=== PATIENT | male | born 1980 | race Caucasian/White ===

== ENCOUNTER 2021-01-07 10:45 | Outpatient (CLI) | payer OTHER, SELFPAY ==
[2021-01-07 11:58] LABS: Hematocrit 44.5 % (42.0-52.0); Hemoglobin 15.3 g/dL (14.0-18.0); Mean Corpuscular HGB Conc 34.4 g/dl (32-36); Mean Corpuscular Hemoglobin 28.9 pg (26-34); Mean Corpuscular Volume 84.1 fl (80-100); Mean Platelet Volume 11.4 fl (7.4-10.4); Platelet Count Result 195 k/mm3 (150-375); Red Blood Count 5.29 M/mm3 (4.6-6.20); Red Cell Distribution Width 12.4 % (11.5-14.5); White Blood Count 4.9 K/mm3 (4.5-10.0)
[2021-01-07 12:07] LABS: Alanine Aminotransferase 39 U/L (4-50); Albumin Level 4.8 g/dL (3.5-5.1); Alkaline Phosphatase 99 U/L (38-126); Anion Gap 8 mmol/L (8-16); Aspartate Amino Transferase 32 U/L (17-59); Bilirubin,Total 0.5 mg/dL (0.2-1.3); Blood Urea Nitrogen 18 mg/dL (9-20); Calcium 9.5 mg/dL (8.4-10.2); Carbon Dioxide 29 mmol/L (22-30); Chloride 103 mmol/L (98-107); Cholesterol 203 mg/dL (0-200); Estimated Glomerular Filt Rate > 60; Glucose 88 mg/dL (75-110); HDL Direct 32 mg/dL; Potassium 4.2 mmol/L (3.4-5.0); Sodium 140 mmol/L (137-145); Triglycerides 441 mg/dL (<150)
[2021-01-07 12:18] LABS: LDL Cholesterol Direct 84 mg/dL
[2021-01-12 12:09] LABS: Testosterone Free 71.2 pg/mL (35.0-155.0); Testosterone Total 381 ng/dL (250-1100)
== END 2021-01-07 10:46 | disposition home or self-care (01) ==
PROVIDERS: PCP Physician Assistant; Visit Provider Physician Assistant
DX: R53.83 Other fatigue (principal); Z00.00 Encounter for general adult medical examination without abnormal findings
CPT/HCPCS: 36415; 80053; 80061; 84402; 84403; 84443; 85027

== ENCOUNTER 2021-02-28 09:53 | Outpatient (CLI) | payer OTHER, SELFPAY ==
--- NOTE | ~2021-02-28 | CT_ITS ---
EXAMINATION: CT sinus wo con DATE: 02/28/2021 10:15 INDICATION: Deviated nasal septum, difficulty breathing through nose TECHNIQUE: Computed tomography (CT) of the paranasal sinuses was performed without contrast. Iterativ e reconstruction technique was employed. Exam dose: 329.94 mGy-cm total exam DLP. COMPARISON: 04/22/2009 CT sinuses FINDINGS: Leftward deviation of nasal septum. Prominent interlamellar cell of right middle nasal turbinate. Mild or intraluminal cell formation of the bilateral superior nasal turbinates. Relatively symmetric prominent soft tissue thickening of the inferior nasal turbinates. Asymmetric so ft tissue thickening of the right middle nasal turbinate. The ostiomeatal units are patent bilaterally. Small focal area of soft tissue thickening of posterior medial right maxillary sinus and posterolater al left maxillary sinus. The paranasal sinuses and mastoid air cells are otherwise normally developed and aerated. Middle and inner ear apparatus appear normal bilaterally. IMPRESSION: Leftward deviation of nasal septum Soft tissue prominence of right middle and bilateral inferior nasal turbinates Prominent intralamellar cell of right middle nasal turbinate Bilateral superior nasal turbinate intralamellar cell Patent ostiomeatal units Small focal mucoperiosteal thickening of each maxillary sinus Reviewed, dictated and finalized at [facility]. Reviewed, dictated and finalized at [facility].
== END 2021-02-28 09:54 | disposition home or self-care (01) ==
PROVIDERS: PCP Physician Assistant; Visit Provider Otolaryngology
DX: J34.2 Deviated nasal septum (principal); J34.89 Other specified disorders of nose and nasal sinuses; R44.8 Other symptoms and signs involving general sensations and perceptions; R51.9 Headache, unspecified; R09.81 Nasal congestion; J34.3 Hypertrophy of nasal turbinates
CPT/HCPCS: 70486

== ENCOUNTER → 2021-03-21 02:19 | Outpatient (CLI) | payer OTHER, SELFPAY ==
[2021-03-21 23:32] LABS: SARS-CoV-2 RNA PCR Negative
== END ==
PROVIDERS: PCP Physician Assistant; Visit Provider Otolaryngology
DX: Z01.812 Encounter for preprocedural laboratory examination (principal); Z20.822 Contact with and (suspected) exposure to COVID-19
CPT/HCPCS: C9803; U0003; U0005

== ENCOUNTER 2021-03-24 02:25 | Day surgery (SDC) | payer OTHER, SELFPAY ==
[2021-03-14 14:51] VITALS: BMI 34.9
--- NOTE | 2021-03-22 08:30 | PM.IMHP ---
H&P: HPI History of Present Illness Date/Time: 03/22/21 08:30 40-year-old male presents for planned surgical procedures. Reports no new symptoms or changes in medical history. Chief Complaint: nasal obstruction, nasal congestion, inferior turbinate hypertrophy, patricia bullosa right, septal deviation Review of Systems Constitutional: Constitutional: Denies fatigue, Denies fever(s) and Denies lethargy Eyes: Eyes: Denies blurry vision and Denies change in vision ENT: Reports as per HPI Cardiovascular: Cardiovascular: Denies chest pain Respiratory: Respiratory: Denies cough Endocrine: Endocrine: Denies fatigue Hematologic/Lymphatic: Hematologic/Lymphatic: Denies easy bleeding, Denies easy bruising and Denies lymphadenopathy Allergic/Immunologic: Allergic/Immunologic: Denies seasonal rhinorrhea [facility] [place] Past Medical History Medical History (Updated 02/22/21 @ 08:25 by Deshawn Calderon MD) Anxiety and depression Depression Hypertriglyceridemia Hypertrophy of both inferior nasal turbinates Nasal congestion Nasal obstruction Obesity (BMI 30-39.9) Family History Family History Mother Patient's mother is in good health Father Patient's father is in good health Social History Social History (Updated 01/31/21 @ 13:27 by Wanda Briscoe MA) Smoking status: Never smoker Second hand tobacco smoke exposure: No Alcohol intake: current Substance use: never Substance use type: does not use Spiritual care concerns: No Meds Home Medications and Allergies Home Medications Medication Instructions Recorded Confirmed Type omeprazole 20 mg capsule,delayed 20 mg PO DAILY 08/28/19 03/14/21 History release fluoxetine 20 mg capsule 20 mg PO DAILY #90 cap 01/10/21 03/14/21 Rx Allergies Allergy/AdvReac Type Severity Reaction Status Date / Time No Known Allergies Allergy Verified 03/14/21 14:51 Exam Const: General: cooperative, healthy appearing, comfortable, well developed and alert HENMT: Head: normal to inspection, normocephalic and atraumatic Ears: hearing grossly normal bilaterally, external ears normal, TM's normal bilaterally and EAC's normal General nose exam: Normal external nose present, Normal nares present, No nasal polyps present and Other nasal findings present ( Septal deviation inferior turbinate hypertrophy) Face and sinus: normal facial exam Mouth: Yes Normal oral and palatal mucosa present, Yes lip normal, Yes tongue normal, Yes oropharynx normal and Yes moist mucous membranes Teeth and gingiva: dentition normal and gingiva normal Throat: posterior oropharynx normal, tonsils normal and uvula midline Eyes: General: appearance normal, both eyes and all related structures Periorbital: periorbital findings normal Eyelids: eyelids normal Conjunctivae: conjunctivae normal Sclera: sclerae normal Neck: Neck: normal visual inspection, full ROM and no lymphadenopathy Thyroid: thyroid normal Lymphatic: no lymphadenopathy noted Resp: Effort & Inspection: normal respiratory effort and able to speak in complete sentences Cardio: Jugular venous distension: no JVD Neuro: Cranial nerves: Yes CN's II-XII intact bilaterally Assessment and Plan Assessment and plan (1) Patricia bullosa: Code(s): J34.89 - Other specified disorders of nose and nasal sinuses Status: Acute Assessment and Plan: plan is for the operating room for endoscopic assisted resection of right patricia bullosa septoplasty and inferior turbinate reduction without fracture. The risks were discussed including damage to brain blindness damage to vision CSF leak bleeding infection and the need for further procedures. The patient voiced understanding of these risks and agreed. (2) Nasal septal deviation: Code(s): J34.2 - Deviated nasal septum Status: Acute (3) Nasal obstruction: Code(s): J34.89 - Other specified disorders of
[2021-03-24] VITALS (8 sets, daily range): BP systolic 111–129; BP diastolic 70–89; PULSE 55–81; RESP 12–19; TEMP 36–36.6; O2SAT 97–100
--- NOTE | 2021-03-24 07:01 | WPDANESEPPF ---
Anes - Initial Pre Proc Eval Procedure: Operation Date: 03/24/21 08:30 Proposed Procedures p Bilateral Inferior Turbinectomy, Resection of Massiel Bullosa - Deshawn Calderon MD s Endoscopic Septoplasty - Deshawn Calderon MD Date/Time: 03/24/21 07:01 Surgeon: Deshawn Calderon MD Pre Op Diagnosis: chronic sinusitis Patient Data Age: 40 Gender: M Height: 6 ft 1 in Weight: 120.2 kg Allergies Allergy/AdvReac Type Severity Reaction Status Date / Time No Known Allergies Allergy Verified 03/14/21 14:51 Home Medications Medication Instructions Recorded Confirmed Type omeprazole 20 mg capsule,delayed 20 mg PO DAILY 08/28/19 03/14/21 History release fluoxetine 20 mg capsule 20 mg PO DAILY #90 cap 01/10/21 03/14/21 Rx Patient hx anesthesia problems: other (motion sickness) Family hx anesthesia problems: none PMFSH Past Medical History Medical History Anxiety and depression Depression Hypertriglyceridemia Hypertrophy of both inferior nasal turbinates Nasal congestion Nasal obstruction Obesity (BMI 30-39.9) Family History Family History Mother Patient's mother is in good health Father Patient's father is in good health Social History Social History Smoking status: Never smoker Second hand tobacco smoke exposure: No Alcohol intake: current Alcohol use details: RARE - 1/MONTH AT MOST Substance use: never Substance use type: does not use Living arrangements: with family Spiritual care concerns: No Anes - Eval Final PreProcedure Day of Procedure 03/24/21 07:01 Patient weight: obese Heart: regular rate and rhythm Lungs: clear to auscultation Airway: Mallampati scale class II Neurological: alert and oriented Last oral intake: >/= 8 hours ASA classification: II Emergent: no Anesthetic plan: proceed Anesthesia type and monitoring: general ETT and standard monitoring Informed Consent: The patient's anesthetic plan and its attendant risks and benefits were discussed with the patient/family/POA. Questions were solicited and answers provided to the satisfaction of the patient/family/POA.
--- NOTE | 2021-03-24 07:05 | WPDHPUPDATE1 ---
History and Physical Update Update Date/Time: 03/24/21 07:05 History and Physical has been reviewed, including an updated exam of the patient. There are NO changes in the patient's condition. Risks, benefits, and alternatives have been discussed and questions answered. Patient agrees to proceed with procedure.
[2021-03-24] MEDS: SCOPOLAMINE 1.5 MG PATCH TRANSDERM (08:06)
[2021-03-24] MEDS: ACETAMINOPHEN 500 MG TABLET 1000 MG PO (08:06)
[2021-03-24] MEDS: LACTATED RINGERS 1,000 ML 30 ML IV CONT (08:07)
[2021-03-24] MEDS: ceFAZolin 2 GM/D5W 50 ML 2 GM/50 ML BAG IVPB (08:29)
[2021-03-24] MEDS: LIDO 1%/EPINEPHRINE 1:100,000 50 ML VIAL INFILTRATE (08:35)
[2021-03-24] MEDS: OXYMETAZOLINE HCL 0.05% NAS 15 ML BTL (*BKC) 1 SPRAY NASAL (08:35)
--- NOTE | 2021-03-24 10:12 | P.OP_ITS ---
Procedure Note - Detailed Date of Procedure 03/24/21 Pre-op Diagnosis chronic sinusitis Post-op Diagnosis same Procedure Performed 1. Endoscopic assisted septoplasty 2. Inferior turbinate submucosal resection with outfracture 3. Resection of right patricia bullosa Surgeon Deshawn Calderon MD Anesthesia general Indications Right patricia bullosa deviated nasal septum inferior turbinate hypertrophy nasal obstruction and nasal congestion Findings Septal deviation inferior turbinate hypertrophy right patricia bullosa Description of Procedure The patient was correctly identified and consent was verified in the preoperativ e holding area. The patient was then brought to the operating room and a time- out was performed. General anesthesia was induced and endotracheal tube was secured the patient's airway and taped to the left lower lip. Afrin-soaked pledgets were then inserted in the bilateral nasal passages and allowed to sit for 5 minutes. The patient was then prepped and draped for the aforementioned procedure. The Afrin-soaked pledgets were removed. 8 cc of 1% lidocaine with 1 100,000 parts epinephrine was injected in the bilateral nasal septum in the submucoperichondrial plane as well as the bilateral inferior turbinates and the right anterior middle turbinate. Fifteen blade was utilized to make a left- sided [place] incision. A mucoperichondrial flap was elevated. The cartilage was then transected and a right-sided mucoperichondrial flap was elevated. The deviated nasal septum was removed with a combination of Clarence Melara forceps Juan forceps and osteotome. Small perforation on the right side was noted. The right middle turbinate was then entered anteriorly with a sickle blade. Through cuts and microdebrider were utilized to perform the resection of the patricia bullosa with adequate hemostasis noted. The left inferior turbinate was then entered anteriorly using micro debrider with inferior turbinate blade. This was debrided in the submucosal plane. Mcleod tip and edematous mucosa were then debrided and cauterized using Bovie suction electrocautery at a setting of 15. The exact same procedure was performed on the right inferior turbinate as well. Hemostasis was noted to be excellent. The left-sided septal Juan incision was then closed with 3 interrupted 5 0 fast gut sutures. The bilateral nasal passages were them examined and hemostasis was again noted to be excellent. Bilateral Banks splints were placed and sutured anteriorly using a 3 0 nylon suture. Care of the patient was turned over to Anesthesiology. There were no complications. I performed all dictated portions of the procedure. Implants Banks splints Estimated Blood Loss -20.0 Drains No Packing No Pathology none sent Complications No immediate complications Condition stable Disposition PACU
[2021-03-24] MEDS: fentaNYL CITRATE INJ (*CRX) 100 MCG/2 ML VIAL 25 MCG IV PUSH ×6 (10:16→10:40)
[2021-03-24] MEDS: ONDANSETRON INJ 4 MG/2 ML VIAL IV PUSH (10:30)
[2021-03-24] MEDS: diphenhydrAMINE HCl INJ 50 MG/ML VIAL 25 MG IV PUSH (10:59)
== END 2021-03-24 11:32 | disposition home or self-care (01) ==
PROVIDERS: PCP Physician Assistant; Visit Provider Otolaryngology
PROC: (CPT 30520; principal; 2021-03-24 08:30)
PROC: (CPT 30520; 2021-03-24 08:30)
DX: J32.9 Chronic sinusitis, unspecified (principal); J34.2 Deviated nasal septum; J34.3 Hypertrophy of nasal turbinates; J34.89 Other specified disorders of nose and nasal sinuses; F41.8 Other specified anxiety disorders; E78.1 Pure hyperglyceridemia; E66.9 Obesity, unspecified; Z68.34 Body mass index [BMI] 34.0-34.9, adult
CPT/HCPCS: 30520; 30140; 31240; A9270; J0330; J0690; J1100; J1200; J2250; J2405; J2704; J3010; J7120

== ENCOUNTER → 2021-05-19 01:29 | Outpatient (CLI) | payer OTHER, SELFPAY ==
[2021-05-20 02:18] LABS: SARS-CoV-2 RNA PCR Negative
== END ==
PROVIDERS: PCP Physician Assistant; Visit Provider Physician Assistant
DX: Z20.822 Contact with and (suspected) exposure to COVID-19 (principal); R09.89 Other specified symptoms and signs involving the circulatory and respiratory systems
CPT/HCPCS: 36415; 80061; C9803; U0003; U0005

== ENCOUNTER 2021-05-19 08:25 | Outpatient (CLI) | payer OTHER, SELFPAY ==
[2021-05-19 09:09] LABS: Cholesterol 206 mg/dL (0-200); HDL Direct 39 mg/dL; Triglycerides 198 mg/dL (<150)
[2021-05-19 09:20] LABS: LDL Cholesterol Direct 113 mg/dL
== END 2021-05-19 08:26 | disposition home or self-care (01) ==
LOC: ANHLAB 08:29
PROVIDERS: PCP Internal Medicine; Visit Provider Physician Assistant
DX: E78.1 Pure hyperglyceridemia (principal)
CPT/HCPCS: 36415; 80061

== ENCOUNTER 2022-06-04 17:07 | Outpatient (CLI) | payer OTHER, SELFPAY ==
--- NOTE | ~2022-06-04 | XR_ITS ---
EXAM: XR shoulder RT min 2V DATE: 06/04/2022 17:34 HISTORY: ANTERIOR LATERAL RT SHOULDER PAIN X 2 WEEKS NO INJURY . COMPARISON: None available. FINDINGS: Normal mineralization. No fracture or dislocation. No lytic or blastic lesion. Joint space s are maintained. No erosion or periosteal change. Soft tissues within normal limits. IMPRESSION: Normal right shoulder radiograph findings. Reviewed, dictated and finalized at [facility].
--- NOTE | ~2022-06-04 | XR_ITS ---
EXAM: XR foot LT min 3V DATE: 06/04/2022 17:33 HISTORY: PAIN TO ANTERIOR LT FOOT X 2 WEEKS NO INJURY . COMPARISON: None available. FINDINGS: Normal mineralization. No fracture or dislocation. No lytic or blastic lesion. Moderate de generative changes in the midfoot and mild degenerative change in the first MTP. Achilles and plantar enthesopathy. Loss of the longitudinal arch. No erosion or periosteal change. Soft tissues within no rmal limits. IMPRESSION: Pes planus. Degenerative midfoot and first MTP change. Plantar and Achilles enthesopathy. Reviewed, dictated and finalized at [facility].
== END 2022-06-04 17:08 | disposition home or self-care (01) ==
PROVIDERS: PCP Physician Assistant; Visit Provider Physician Assistant
DX: M25.511 Pain in right shoulder (principal); M21.42 Flat foot [pes planus] (acquired), left foot; M19.072 Primary osteoarthritis, left ankle and foot
CPT/HCPCS: 73030; 73630

== ENCOUNTER 2023-12-24 01:07 | Day surgery (SDC) | payer OTHER, SELFPAY ==
[2023-12-13 12:49] VITALS: BMI 37.0
--- NOTE | 2023-12-20 10:49 | SUR.PREOP ---
Patient called regarding upcoming procedure. Reviewed preop instructions, appointment times, and procedure prep.
[2023-12-24 12:48] VITALS: BP 110/83; PULSE 79; RESP 18; TEMP 36.6; O2SAT 99; BMI 37.0
[2023-12-24] MEDS: LACTATED RINGERS 1,000 ML 150 ML IV CONT (13:05)
--- NOTE | 2023-12-24 13:32 | WPDANESEPPF ---
Anes - Initial Pre Proc Eval Procedure: Operation Date: 12/24/23 13:30 Proposed Procedures p Esophagogastroduodenoscopy & Colonoscopy - Sammy Macias MD Date/Time: 12/24/23 13:32 Surgeon: Sammy Macias MD Pre Op Diagnosis: GERD,Anal Fissure,hx colon polyps Patient Data Age: 43 Gender: M Height: 1.85 m Weight: 127.2 kg Last Vital Signs Temp 97.8 F 12/24/23 12:48 Pulse 79 12/24/23 12:48 Resp 18 12/24/23 12:48 BP 110/83 12/24/23 12:48 Pulse Ox 99 12/24/23 12:48 O2 Del Method Room Air 12/24/23 12:48 Allergies Allergy/AdvReac Type Severity Reaction Status Date / Time No Known Allergies Allergy Verified 12/24/23 12:46 Home Medications Medication Instructions Recorded Confirmed Type omeprazole 20 mg capsule,delayed 20 mg PO DAILY 08/28/19 12/13/23 History release rizatriptan 10 mg tablet (Maxalt) See Rx Instructions PO .COMPLEX #9 02/25/23 12/13/23 Rx tabs desvenlafaxine succinate 50 mg 50 mg PO DAILY 12/13/23 12/24/23 History tablet,extended release 24 hr Patient hx anesthesia problems: none Family hx anesthesia problems: none Results Review: All pre-operative results and documents have been reviewed as part of the pre-operative evaluation. [facility] Past Medical History Medical History Anxiety and depression Massiel bullosa Depression Hypertriglyceridemia Hypertrophy of both inferior nasal turbinates Impingement syndrome, shoulder, left Nasal septal deviation Family History Family History Mother Patient's mother is in good health Father Patient's father is in good health Social History Social History Smoking status: Never smoker Second hand tobacco smoke exposure: No Alcohol intake: never Substance use: never Substance use type: does not use Lack of Transportation: No Lack of Food: Never True Current Housing: I Have Housing Concerned About Future Housing: No Difficulty Paying Gas/Electric Bills: No Difficulty Paying for Meds: No Currently Unemployed: No Education: High School Diploma/GED Difficulty w/ Childcare or Family Care: No Living arrangements: with family Spiritual care concerns: No Anes - Eval Final PreProcedure Day of Procedure 12/24/23 13:32 Patient weight: obese Heart: regular rate and rhythm Lungs: clear to auscultation Airway: Mallampati scale class II Neurological: alert and oriented Last oral intake: >/= 8 hours ASA classification: III Emergent: no Anesthetic plan: proceed Anesthesia type and monitoring: general GIVS and standard monitoring Results Review: All pre-operative results and documents have been reviewed as part of the pre-operative evaluation. Informed Consent: The patient's anesthetic plan and its attendant risks and benefits were discussed with the patient/family/POA. Questions were solicited and answers provided to the satisfaction of the patient/family/POA.
--- NOTE | 2023-12-24 13:39 | PM.HPGS ---
History of Present Illness History of Present Illness Consent: Risks, benefits, and alternatives have been discussed and questions answered. Patient agrees to proceed with procedure. Chief complaint: GERD,Anal Fissure,hx colon polyps Narrative: Oleg Emmanuel is a 43 year old male with gerd controlled with omeprazole but symptomatic if he skips a dose, had egd years ago. 2016 had colon polyp. Review of Systems Review of Systems: All systems reviewed & are unremarkable except as noted in HPI and below PMFSH Past Medical History Medical History (Updated 12/24/23 @ 13:40 by Sammy Macias MD) Anxiety and depression Colon polyp Massiel bullosa Depression GERD (gastroesophageal reflux disease) Hypertriglyceridemia Hypertrophy of both inferior nasal turbinates Impingement syndrome, shoulder, left Nasal septal deviation Family History Family History Mother Patient's mother is in good health Father Patient's father is in good health Social History Social History Smoking status: Never smoker Second hand tobacco smoke exposure: No Alcohol intake: never Substance use: never Substance use type: does not use Lack of Transportation: No Lack of Food: Never True Current Housing: I Have Housing Concerned About Future Housing: No Difficulty Paying Gas/Electric Bills: No Difficulty Paying for Meds: No Currently Unemployed: No Education: High School Diploma/GED Difficulty w/ Childcare or Family Care: No Living arrangements: with family Spiritual care concerns: No Meds Home Medications and Allergies Home Medications Medication Instructions Recorded Confirmed Type omeprazole 20 mg capsule,delayed 20 mg PO DAILY 08/28/19 12/13/23 History release rizatriptan 10 mg tablet (Maxalt) See Rx Instructions PO .COMPLEX #9 02/25/23 12/13/23 Rx tabs desvenlafaxine succinate 50 mg 50 mg PO DAILY 12/13/23 12/24/23 History tablet,extended release 24 hr Allergies Allergy/AdvReac Type Severity Reaction Status Date / Time No Known Allergies Allergy Verified 12/24/23 12:46 Vital Signs Vital Signs - 24 hr 12/24/23 12:48 Temperature 97.8 F Pulse Rate 79 Respiratory Rate 18 Blood Pressure 110/83 Pulse Oximetry 99 Oxygen Delivery Room Air Exam Const: General: comfortable and no acute distress HENMT: Face/Nose/Sinus: Normal nares present Eyes: General: appearance normal, both eyes and all related structures Neck: Neck: no JVD Resp: Auscultation: clear to auscultation bilaterally Cardio: Rate: regular rate Rhythm: regular rhythm GI: Inspection: non-distended GI Palp: Yes Soft to palpation Skin: General skin exam: normal color Neuro: General: gait normal Speech: normal speech Extrem: General: normal to inspection Psych: Mental Status: mental status grossly normal Assessment and Plan Assessment and plan (1) GERD (gastroesophageal reflux disease): Code(s): K21.9 - Gastro-esophageal reflux disease without esophagitis Status: Acute Assessment and Plan: egd with bx on ppi (2) Colon polyp: Code(s): K63.5 - Polyp of colon Status: Acute Assessment and Plan: colonoscopy
[2023-12-24] MEDS: BENZOCAINE (*SP) 60 ML SPRAY CAN (HURRICAINE) 1 SPRAY MUCOUS MEM (13:42)
--- NOTE | 2023-12-24 13:52 | SUR.OPER ---
EGD: [id number] COLON: Start 1356
[2023-12-24 14:06] VITALS: BP 88/60; PULSE 58; RESP 13; O2SAT 95
[2023-12-24 14:16] VITALS: BP 88/61; PULSE 66; RESP 18; O2SAT 100
[2023-12-24 14:26] VITALS: BP 97/71; PULSE 51; RESP 14; O2SAT 99
== END 2023-12-24 14:31 | disposition home or self-care (01) ==
PROVIDERS: PCP Family Medicine Sports Medicine; Visit Provider Internal Medicine Gastroenterology
PROC: 0DJ08ZZ Inspection of Upper Intestinal Tract, Via Natural or Artificial Opening Endoscopic (ICD-10-PCS; CPT 43235; principal; 2023-12-24 13:30)
DX: Z12.11 Encounter for screening for malignant neoplasm of colon (principal); K29.70 Gastritis, unspecified, without bleeding; K44.9 Diaphragmatic hernia without obstruction or gangrene; K21.00 Gastro-esophageal reflux disease with esophagitis, without bleeding; F32.A Depression, unspecified; F41.9 Anxiety disorder, unspecified; E78.1 Pure hyperglyceridemia; Z86.010 Personal history of colon polyps; Z79.899 Other long term (current) drug therapy
CPT/HCPCS: 43239; 45378; 88305; J2704; J7120